=== PATIENT | male | born 1990 | race Caucasian/White ===

== ENCOUNTER 2017-10-04 21:26 | Emergency (ER) | payer OTHER ==
[2017-10-04] MEDS ORDERED: Ibuprofen 600 MG Tab PO ONE (21:39)
[2017-10-04] MEDS ORDERED: Acetaminophen/oxyCODONE 325-5 MG Tab PO ONE (21:39)
--- NOTE | 2017-10-04 21:43 | EDM.PDOC ---
ED HPI GENERAL MEDICAL PROBLEM - General Chief Complaint: Lower Extremity Injury/Pain Stated Complaint: POSS LEG INJURY Time Seen by Provider: 10/04/17 21:38 Source of Information: Reports: Patient, Family (spouse) History Limitations: Reports: No Limitations - History of Present Illness INITIAL COMMENTS - FREE TEXT/NARRATIVE: Evaluation in the emergency room tonight in regards to acute onset of severe pain left medial posterior thigh in the distribution of the hamstring muscles. Injury occurred while running from first to second base. A heard a loud pop tear sensation when this occurred. Subsequently unable to fully extend the left leg at the knee due to severe pain in the buttock area. No previous hamstring injuries. Onset: Today Onset Date: 10/04/17 Onset Time: 09:00 Duration: Minutes: Location: Reports: Lower Extremity, Left (Left medial posterior thigh) Quality: Reports: Ache, Burning Severity: Moderate (Pain at rest is 5 pain with movement is 8 or 9) Improves with: Reports: Rest Worsens with: Reports: Movement Context: Reports: Activity (Was playing baseball. Running from first to second base when felt and heard a loud pop and tear sensation in his left posterior thigh.) Associated Symptoms: Reports: No Other Symptoms Treatments SE[employer]: Reports: Other (see below) (None.) Left Leg Pain Score (Numeric/FACES): 9 - Related Data Allergies Allergy/AdvReac Type Severity Reaction Status Date / Time No Known Allergies Allergy Verified 10/04/17 21:32 Home Meds: Home Meds Dextroamphetamine/Amphetamine [Adderall 20 mg Tablet] 20 mg PO DAILY 10/04/17 [ History] oxyCODONE HCl/Acetaminophen [Percocet 5-325 mg Tablet] 1 - 2 each PO Q4H PRN # 20 tablet 10/04/17 [Rx] Past Medical History Psychiatric History: Reports: ADHD Social & Family History - Living Situation & Occupation Living situation: Reports: Single Occupation: Employed Review of Systems - Review of Systems Review Of Systems: See Below Constitutional: Reports: No Symptoms Eyes: Reports: No Symptoms Ears: Reports: No Symptoms Nose: Reports: No Symptoms Mouth/Throat: Reports: No Symptoms Respiratory: Reports: No Symptoms Cardiovascular: Reports: No Symptoms GI/Abdominal: Reports: No Symptoms Genitourinary: Reports: No Symptoms Musculoskeletal: Reports: Leg Pain Skin: Reports: No Symptoms (She has history of present illness.) Neurological: Reports: No Symptoms Psychiatric: Reports: Other ED EXAM, GENERAL - Physical Exam Exam: See Below (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 He has pain along the pelvic ring posteriorly particularly medially. Pain throughout the distribution of the medial hamstring muscles particularly mid and superior belly of the muscle. Unable to extend the knee to full extension i.e. loss of 30 extension.) Neurological: Alert, Oriented, CN II-XII Intact, Normal Cognition, Normal Gait, Other (Cannot walk or bear weight on the left leg) Psychiatric: Normal Affect, Normal Mood Skin Exam: Warm, Dry, Intact, Normal Color, No Rash Course - Vital Signs Last Recorded V/S: Last Vital Signs Temp 36.7 C 10/04/17 21:33 Pulse 94 10/04/17 21:33 Resp 16 10/04/17 21:33 BP 130/96 H 10/04/17 21:33 Pulse Ox 96 10/04/17 21:33 - Orders/Labs/Meds Orders: Active Orders 24 hr Category Date Time Status Pelvis 1V or 2V [CR] Stat Exams 10/04/17 21:38 Taken Meds: Medications Discontinued Medications Generic Name Dose Route Start Last Admin Trade Name Shona PRN Reason Stop Dose Admin Ibuprofen 600 mg 10/04/17 21:39 10/04/17 21:45 Motrin PO 10/04/17 21:40 600 mg ONETIME ONE Administration Oxycodone/Acetaminophen 1 tab 10/04/17 21:39 10/04/17 21:44 Percocet 325-5 Mg PO 10/04/17 21:40 1 tab ONETIME ONE Administration - Radiology Interpretation Free Text/Narrative:: 26-year-old male presents to the ED with an acute injury to his left posterior thigh well playing baseball. He was running from first to second base when he felt and heard a loud pop tear sensation in his left posterior thigh. Pain is excruciating. He is no longer able to weight-bear on the left side. He has hopping in his gait. Examination reveals medial hamstring tear. Lost 30 extension at the knee due to pain. X-ray of the pelvis will be obtained to make sure there is no bony avulsion. Treated with Motrin 600 mg by mouth with Percocet 5/3/25 by mouth now for pain relief. - Re-Assessments/Exams Free Text/Narrative Re-Assessment/Exam: 10/04/17 22:12 x-ray of the pelvis reveals no bony avulsion injury from the ischial tuberosity. Treatment will therefore be nonweightbearing crutch walking. He will ice the area one half hour out of every 3-4 hours for the next 3 days. He will be off work probably close to a month if no little longer. Patient advised Dianaon time to heal. I will have him follow-up with Dr. Howell in clinic within the next 7-10 days. In the meantime he will take Percocet tabs 5/3 /25 one or 2 every 4-6 hours for pain relief for the next 3-4 days after this he can use Motrin 600 mg every 6 hours when necessary for pain relief. Departure - Departure Time of Disposition: 22:13 Disposition: Home, Self-Care 01 Condition: Fair Clinical Impression: Tear of left hamstring Qualifiers: Encounter type: initial encounter Qualified Code(s): S76.312A - Strain of muscle, fascia and tendon of the posterior muscle group at thigh level, left thigh, initial encounter - Discharge Information Prescriptions: oxyCODONE HCl/Acetaminophen [Percocet 5-325 mg Tablet] 1 - 2 each PO Q4H PRN # 20 tablet PRN Reason: pain relief. Instructions: Hamstring Strain Referrals: Jorge Mejia MD [Primary Care Provider] - Forms: ED Department Discharge Additional Instructions: Evaluation the emergency room tonight in regards to acute injury to the left posterior thigh well running bases during a baseball game. Mathew heard a loud pop which was a tear of the left medial hamstring muscles. There are 2 hamstring muscles on the inside of your 5. It's impossible to know which one if not for partially. X-ray of the pelvis shows no bony avulsion injuries. It is time to heal. This unfortunately takes a good deal of time to heal up completely. Treatment is nonweightbearing crutch walking for the next 2-3 weeks. Ice pack to the area one half hour out of every 3-4 hours today to return for the next 3 days. After this may apply heat to the area. May use Percocet 5/3/25 milligram tablet 1-2 tablets every 4-6 hours necessary for pain relief. May also use Motrin 600 mg every 6 hours for pain relief as this often will reduce the need for the stronger pain medication. Strong pain medications cause constipation and notices this is an issue for than I would suggest purchasing some MiraLAX powder which is [id number]. 1 scoop 17 g daily well on the stronger pain medication will prevent constipation. Suggest follow- up with Dr. Howell orthopedic surgeon in 7-10 days time. Please call his office tomorrow at [phone] to arrange an appointment - My Orders Last 24 Hours: My Active Orders 10/04/17 21:38 Pelvis 1V or 2V [CR] Stat - Assessment/Plan Last 24 Hours: My Active Orders 10/04/17 21:38 Pelvis 1V or 2V [CR] Stat
--- NOTE | 2017-10-05 10:41 | CR ---
Pelvis: AP view of the pelvis was obtained. Comparison: No previous study. Joint spaces within both hips are maintained. Sacroiliac joints are within normal limits. No acute fracture or other bony abnormality is appreciated. Impression: 1. Nothing acute is seen on AP pelvis study. Diagnostic code #2
== END 2017-10-04 22:40 | disposition home or self-care (01) ==
LOC: JD.ED 21:26
DX: S76.312A Strain of muscle, fascia and tendon of the posterior muscle group at thigh level, left thigh, initial encounter (principal); X50.9XXA Other and unspecified overexertion or strenuous movements or postures, initial encounter
CPT/HCPCS: 72170; 99283; A9270